=== PATIENT | female | born 1955 | race Caucasian/White ===

== ENCOUNTER → 2016-02-29 | Outpatient (CLI) | payer BC ==
[~2016-02-29] MED LIST: ANTIVERT25 MG PO; APA PO; ASPIR 8181 MG PO; ATARAX25 MG PO; ATIVAN0.5 MG; CRESTOR10 M1 PO; CRESTOR10 MG; DAYPRO600 M1 PO; FLEXERIL5 MG PO; HYDROCODONE PO; HYDROCORTISONE30 G3 PO; LISINOPRIL5 MG PO; LOVENOX30 MG/0.3 SC; MEDROL DOSEPAK4 MG PO; PAXIL20 MG PO; PAXIL40 M1 PO; PRED PAK PO; PREDNICOT20 MG PO; Percocet 325 MG1 TAB PO; VIBRAMYCIN100 MG PO; VICODIN 5/500 505 MG PO; VICODIN 500 MG-1 TAB PO; VICODIN ES 7501 TAB PO; VITAMIN D50000 I2 PO; XANAX0.5 MG; XANAX0.5 MG PO; ZOFRAN4 MG PO
[2016-02-29 07:34] LABS: BASO % 0.3 % (0.0-1.0); EOS # 0.4 10*3/uL (0.0-0.4); HEMATOCRIT 40.4 % (37.0-47.0); HEMOGLOBIN 12.5 g/dl (12.0-16.0); IG # 0.1 10*3/uL (0.0-0.1); LYMPH # 1.4 10*3/uL (1.3-4.4); LYMPH % 24.3 % (27.0-41.0); MEAN CELL VOLUME 93.1 fl (81.0-99.0); MEAN CORPUSCULAR HGB 28.8 pg (27.0-31.0); MEAN CORPUSCULAR HGB CONC 30.9 g/dl (33.0-37.0); MONO # 0.3 10*3/uL (0.1-1.0); MONO % 5.5 % (3.0-9.0); NEUT # 3.6 10*3/uL (2.3-7.9); NEUT % 61.9 % (47.0-73.0); PLATELET COUNT AUTOMATED 223 10*3/uL (130-400); RED BLOOD COUNT 4.34 10*6/uL (4.10-5.10); RED CELL DISTRI WIDTH 12.9 % (0-14.5); WHITE BLOOD COUNT 5.9 10*3/uL (4.8-10.8)
[2016-02-29 08:04] LABS: ALBUMIN 3.7 gm/dl (3.1-4.5); ALKALINE PHOSPHATASE 100 U/L (45-117); BILIRUBIN, TOTAL 0.8 mg/dl (0.2-1.0); BUN 18 mg/dl (7-24); CARBON DIOXIDE 31 mmol/L (21-32); CHLORIDE 108 mmol/L (98-107); CHOLESTEROL 182 mg/dL (<200); EST GLOM FILT AFRICAN AMERICAN > 60 ml/min; GLUCOSE 87 mg/dL (65-99); HDL CHOLESTEROL 75 mg/dl (40-60); LDL CHOLESTEROL 95 mg/dL (9-159); POTASSIUM 4.6 mmol/L (3.5-5.1); SGOT/AST 17 IU/L (3-35); SGPT/ALT 20 U/L (12-78); SODIUM 144 mmol/L (136-145); TOTAL PROTEIN 6.7 gm/dL (6.4-8.2); TRIGLYCERIDES 61 mg/dl (<150); VLDL CHOLESTEROL 12 mg/dL (6-40)
[2016-02-29 08:05] LABS: C-REACTIVE PROTEIN < 0.29 MG/DL (0-0.3)
[2016-02-29 08:32] LABS: VITAMIN D, 25-HYDROXY 32.9 ng/mL (30-100)
== END | disposition home or self-care (01) ==
LOC: LAB 02:09
PROVIDERS: Internal Medicine
DX: I10 Essential (primary) hypertension (principal); M16.10 Unilateral primary osteoarthritis, unspecified hip; L40.9 Psoriasis, unspecified

== ENCOUNTER → 2016-06-11 | Outpatient (CLI) | payer BC | END | disposition home or self-care (01) | LOC: ORTHO 00:36 | DX: M16.11 Unilateral primary osteoarthritis, right hip (principal); Z96.642 Presence of left artificial hip joint ==

== ENCOUNTER → 2016-06-12 | Day surgery (SDC) | payer BC | END | disposition home or self-care (01) | LOC: SDC 02:47 | DX: M25.551 Pain in right hip (principal) ==

== ENCOUNTER → 2016-08-08 | Outpatient (CLI) | payer OTHER | END | disposition home or self-care (01) | LOC: ORTHO 02:01 | DX: M76.891 Other specified enthesopathies of right lower limb, excluding foot (principal); M89.8X9 Other specified disorders of bone, unspecified site; M79.604 Pain in right leg; Z96.642 Presence of left artificial hip joint ==

== ENCOUNTER → 2016-10-21 | Outpatient (CLI) | payer OTHER ==
[~2016-10-21] MED LIST changes: +MELOXICAM15 MG PO; +TRAMADOL HCL50 MG PO
[2016-10-21 09:07] LABS: BASO % 0.3 % (0.0-1.0); EOS # 0.5 10*3/uL (0.0-0.4); HEMATOCRIT 41.3 % (37.0-47.0); LYMPH # 2.2 10*3/uL (1.3-4.4); LYMPH % 28.7 % (27.0-41.0); MEAN CELL VOLUME 92.6 fl (81.0-99.0); MEAN CORPUSCULAR HGB 29.1 pg (27.0-31.0); MEAN CORPUSCULAR HGB CONC 31.5 g/dl (33.0-37.0); MEAN PLATELET VOLUME 9.6 fl (9.6-12.3); MONO # 0.4 10*3/uL (0.1-1.0); MONO % 4.9 % (3.0-9.0); NEUT # 4.5 10*3/uL (2.3-7.9); NEUT % 58.5 % (47.0-73.0); PLATELET COUNT AUTOMATED 249 10*3/uL (130-400); RED BLOOD COUNT 4.46 10*6/uL (4.10-5.10); RED CELL DISTRI WIDTH 14.1 % (0-14.5); WHITE BLOOD COUNT 7.7 10*3/uL (4.8-10.8)
[2016-10-21 09:12] LABS: BILIRUBIN NEGATIVE (NEGATIVE); BLOOD NEGATIVE (NEGATIVE); CLARITY CLEAR (CLEAR); COLOR YELLOW (YELLOW); GLUCOSE NEGATIVE (NEGATIVE); KETONE NEGATIVE (NEGATIVE); LEUKO ESTERASE NEGATIVE (NEGATIVE); NITRITE NEGATIVE (NEGATIVE); PH 6.5 (5.0-9.0); UROBILINOGEN 0.2 E.U./dl (0.2-1.0)
[2016-10-21 09:29] LABS: BACTERIA TRACE
[2016-10-21 09:37] LABS: ALBUMIN 3.8 gm/dl (3.1-4.5); ALKALINE PHOSPHATASE 113 U/L (45-117); BUN 13 mg/dl (7-24); CHLORIDE 105 mmol/L (98-107); CREATININE 0.84 mg/dL (0.55-1.02); POTASSIUM 4.3 mmol/L (3.5-5.1); SGOT/AST 19 IU/L (3-35); SGPT/ALT 22 U/L (12-78); SODIUM 141 mmol/L (136-145); TOTAL PROTEIN 7.4 gm/dL (6.4-8.2)
== END | disposition home or self-care (01) ==
LOC: LAB 10-20 13:41
PROVIDERS: Orthopaedic Surgery
DX: Z01.818 Encounter for other preprocedural examination (principal); M16.11 Unilateral primary osteoarthritis, right hip; I10 Essential (primary) hypertension; Z96.641 Presence of right artificial hip joint

== ENCOUNTER 2016-10-28 02:06 | Inpatient (IN) | payer OTHER ==
[~2016-10-28] VITALS: Ht 167.6 cm; Wt 100.7 kg
[2016-10-28] VITALS (11 sets, daily range): BP systolic 79–152; BP diastolic 44–89
--- NOTE | ~2016-10-28 | PR ---
[place], [place] PROGRESS NOTE NAME[id number] UNIT #: [id number] ROOM: 512 DOCTOR: SUSHMA HERNANDEZ MD BIRTHDATE: [birth year] DOS: SUBJECTIVE: The patient states that she has a lot of pain. She does not have any complaints of chest pains or palpitations. The pain is much worse than her previous surgery that she underwent. OBJECTIVE: VITAL SIGNS: Blood pressure is 99/57, pulse of 90, respirations 20, temperature 98.9. LUNGS: Diminished breath sounds, clear. HEART: Regular. ABDOMEN: Soft. EXTREMITIES: Without any edema. Right hip site looks clean. Dressings intact. LABORATORY DATA: White blood cell count is 8.7, hemoglobin 7.1, hematocrit 22.5. BMP: Glucose 137, BUN 21, creatinine 1.09, sodium 136, potassium 4.6, chloride 105, bicarbonate 25. ASSESSMENT AND PLAN: 1. Right hip replacement, postoperative day 2. 2. The patient is stable postoperatively, still slightly hypotensive. 3. Postoperative anemia. Transfusion will be ordered. Continue IV fluids. 4. Acute kidney injury, possibly from blood loss and acute tubular necrosis. Continue IV fluids. 5. Benign hypertension. Pressures are on the low side, so we will continue holding off on the antihypertensive. SUSHMA HERNANDEZ MD CM:PNTRANS [id number] SUSHMA HERNANDEZ MD 10/30/16 2253 interface
--- NOTE | ~2016-10-28 | WRIGHTHP ---
[place], [place] PATIENT HISTORY AND PHYSICAL EXAM [id number] UNIT #: [id number] ROOM: 512 DOCTOR: SUSHMA HERNANDEZ MD BIRTHDATE: [birth year] DOS: 10/28/2016 HISTORY OF PRESENT ILLNESS: This patient is 61 years old, very well known to us. She is admitted post right hip replacement. The patient does not have any complaints other than pain. She had a very uncomfortable night because of the increased discomfort in her right leg. She denies having any chest pains, palpitations, does not have any fever or chills, does not have any abdominal pain, nausea, any emesis. PAST MEDICAL HISTORY: Significant for: 1. Left hip replacement in 04/2016. 2. Benign hypertension. 3. History of negative cardiac catheterization in 04/2016. 4. Generalized anxiety disorder. MEDICATIONS: She is currently on are Xanax 0.5 mg daily p.r.n., lisinopril 5 mg daily, Meloxicam 15 mg daily, Paxil 40 daily, rosuvastatin 20 mg daily. SOCIAL HISTORY: Nonsmoker, does not use any alcohol. PHYSICAL EXAMINATION: GENERAL: The patient is awake and alert and oriented. VITAL SIGNS: Graphic trend shows the patient's pressures 80/50, pulse of 86, respirations 14, afebrile. NECK: Supple. No lymph nodes. LUNGS: Diminished breath sounds. No wheezes, rales or rhonchi heard. HEART: Regular. ABDOMEN: Obese, soft, nontender. EXTREMITIES: Without any edema. Right hip site looks clean. The right leg does not look swollen, the left without any swelling. MENTAL STATUS: Awake and alert and oriented, answers questions appropriately, sitting up in bed. ASSESSMENT AND PLAN: 1. The patient with history of right hip replacement. Postoperatively, her blood pressure is on the low side. Routine labs have been ordered and pending. The patient is started on vigorous IV hydration and the pressures are maintaining. We will hold off on the lisinopril right now. 2. Postoperative pain, managed with Ultram. 3. Benign hypertension. Again, hold off on antihypertensives right now, with a negative cardiac catheterization early this year. 4. Generalized anxiety disorder, Xanax can be ordered on a p.r.n. basis. [place], [place] PATIENT HISTORY AND PHYSICAL EXAM NAME: SONIA SAMUEL UNIT #: [id number] ROOM: 512 DOCTOR: SUSHMA HERNANDEZ MD BIRTHDATE: [birth year] SUSHMA HERNANDEZ MD CM:HISPHYS:PATIENT HISTORY AND PHYSICAL EXAMINATION 4 SUSHMA HERNANDEZ MD 10/29/16944 interface
--- NOTE | ~2016-10-28 | PR ---
[place], [place] PROGRESS NOTE [id number] UNIT #: [id number] ROOM: 512 DOCTOR: CARYN PRATER MD BIRTHDATE: [birth year] DOS: 10/31/2016 SUBJECTIVE: The patient continues to feel better. She is working with physical therapy after right hip total joint arthroplasty by Dr. Melendez 4 days ago. PHYSICAL EXAMINATION: VITAL SIGNS: Blood pressure 116/78, heart rate of 92 beats per minute, breathing 20 times per minute, temperature of 100.4 degrees Fahrenheit. GENERAL APPEARANCE: The patient is alert and oriented x 3, in no visible distress. HEENT AND NECK: Exam within normal limits. CARDIOVASCULAR SYSTEM: Heart rate is regular in rate and rhythm. S1 and S2 normally audible. LUNGS: Clear to auscultation. ABDOMEN: Soft, nontender. No obvious organomegaly. Bowel sounds are present. EXTREMITIES: Without significant cyanosis or edema. IMPRESSION: 1. Right hip replacement, postoperative day #4, doing well, working with physical therapy. Dr. Melendez is following. 2. Postoperative anemia, hemoglobin now 8.5, to be repeated, was not checked today. 3. Benign essential hypertension with controlled blood pressures, normal today. 4. Acute kidney failure with elevation of BUN and creatinine, resolved with hydration and normal saline. CARYN PRATER MD CM:PNTRANS [phone] CARYN PRATER MD 10/31/16 233 interface
--- NOTE | ~2016-10-28 | O ---
[place], [place] OPERATIVE NOTE NAME: SONIA SAMUEL [facility] #: [id number] UNIT #: [id number] ROOM: [facility] DOCTOR: ALICIA MELENDEZ DO BIRTHDATE: [birth year] DOS: 10/28/2016 PREOPERATIVE DIAGNOSIS: Right hip severe osteoarthritis. POSTOPERATIVE DIAGNOSIS: Right hip severe osteoarthritis. PROCEDURE: Right hip total joint arthroplasty. SURGEON: Alicia Melendez DO. COORDINATOR OF REHABILITATION SERVICES: Lori Watkins Evans. ANESTHESIA: FERNANDO Broderick, general with endotracheal intubation. INDICATIONS: The patient is a 61-year-old female with a history of severe osteoarthritis of the right lower extremity. The risks and benefits of the procedure were explained to the patient preoperatively. Preoperative labs and x-rays were obtained including preoperative medical clearance. DESCRIPTION OF PROCEDURE: The right hip was marked in the holding room. The patient was brought to the operative suite. General anesthetic with endotracheal intubation was performed. The patient was placed side lying on the Pradeep positioning device or peg board vaughan. The patient received Ancef 2 grams IV piggyback. The timeout was performed. The right lower extremity was prepped and draped in usual orthopedic fashion. The posterior southern incision was planned and marked with a marking pen. The incision was injected with Marcaine 0.5% with epinephrine. The incision was made sharply with the scalpel. Subcutaneous tissue was spread down to the level of the gluteus fascia. The gluteus fascia was divided along its fibers and the gluteus muscle was divided bluntly along its fibers. Retractors were utilized including a Charnley self-retaining retractor. The short external rotators were identified and the piriformis was tagged with a suture. These were released at the level of their insertion and retracted posteriorly. The capsule was identified and opened in a T-shaped fashion. The neck was identified and cleared of soft tissue. The guide was put in place and the calcar cut was marked. This was made with an oscillating saw, followed by an osteotome. The femoral head and a portion of the neck were removed and sent to the lab for further study. The acetabulum was initially addressed and labrum was cleared from the edge of the acetabulum. Large osteophytes were removed and there was noted to be loose bodies within the acetabulum, which were also removed. The area was copiously irrigated with normal saline and was reamed beginning with a 35 mm reamer and increasing by 2 mm up to 51. The reaming then progressed by a 1 mm increment to 55 mm. A trial cup was put into place and positioned. X-rays were obtained to evaluate the positioning of the cup. The G7 finned acetabular shell; 4-hole was put into place and in a posterior and superior position. The flexible drill bit was utilized to create 2 holes, followed by the placement of two 20 mm screws. The acetabular cup was noted to fit snugly. The trial liner was put into place and attention was turned to the femoral side of the hip. The box osteotome was used to remove the lateral portion of the medullary canal and this was followed [place], [place] OPERATIVE NOTE NAME: SELENASONIA CHACKO Krystal UNIT #: [id number] ROOM: [facility] DOCTOR: ALICIA MELENDEZ DO BIRTHDATE: [birth year] by straight awl and broaching began with a size 4 and progressed to a size 7 broach. This was noted to have good fit and fill and was snug within the femoral canal. Trials were performed with a 36 mm head and a negative 3 and 6 neck length. The standard neck was noted to provide the best stability in flexion, extension, internal and external rotation as well as shucking. All trials were removed and the area was copiously irrigated with normal saline. There was noted to be continued oozing of blood at the anterior acetabulum and Magdiel was placed within this area to control bleeding as well as electrocautery. The Biomet taper lock primary femoral stem was pressfit into place, followed by cold welding of the 36 mm modular head component with a standard neck. The acetabular liner G7 high wall was put into place and secured with the impactor and mallet. The reduction was again performed and the hip was taken through a range of motion of flexion, extension, internal and external rotation as well as shucking. There was noted to be good stability and motion. The wound was then closed in a layered fashion with 0 Vicryl for the short external rotators as well as the gluteus layer. This was followed by 2-0 Vicryl at the adipose layer and skin edgar. The incision was again injected with Marcaine 0.5 with epinephrine. The dressing was completed with Xeroform, 4 x 4s, ABDs and Tegaderm. The patient was returned to a supine position and the abduction pillow was positioned. The anesthetic was reversed. The patient was extubated and taken to recovery room in satisfactory condition. ESTIMATED BLOOD LOSS: 1500 mL. SPECIMENS: Bone and soft tissue were sent to lab for further study. DRAINS: None. PACKING: None. IMPLANTS: 1. Biomet Taperloc complete primary femoral porous coated stem 7 x 134 mm standard offset. 2. Biomet G7 finned acetabular shell 4-hole cementless, acetabular screws 6.5 mm diameter, 20 mm length x 2. 3. G7 acetabular liner high wall. 4. Biomet modular head component standard neck, 36 mm. [place], [place] OPERATIVE NOTE NAME: GARRETTRADHARICCOSONIA Krystal UNIT #: [id number] ROOM: [facility] DOCTOR: ALICIA MELENDEZ DO BIRTHDATE: [birth year] ALICIA MELENDEZ DO CM:OPRECORD:OPERATIVE NOTE [phone] ALICIA MELENDEZ DO 10/31/16 0719 interface
[2016-10-28 10:11] LABS: HEMATOCRIT 32.4 % (37.0-47.0); HEMOGLOBIN 10.1 g/dl (12.0-16.0)
--- NOTE | 2016-10-28 12:18 | NUR ---
PHYSICAL THERAPY orders received, patient still in post op at this time. Thank you for this referral. Yocasta Hernandez,PT
--- NOTE | 2016-10-28 14:10 | NUR ---
ATTEMPTED EVALUATION AT THIS PM. PT UNABLE TO PARTICIPATE, VERY TIRED AND UNABLE TO MOVE LE ENOUGH TO STAND.
[2016-10-28 14:14] LABS: HEMATOCRIT 29.3 % (37.0-47.0); HEMOGLOBIN 9.3 g/dl (12.0-16.0)
--- NOTE | 2016-10-28 14:18 | NUR ---
Time: 1329 A 61 year old FEMALE admitted to under services of ALICIA LANG DO. Pt. arrived via bed from OP/ADMIT. Chief complaint: RIGHT HIP REPLACEMENT. SUSAN WILL
--- NOTE | 2016-10-28 14:26 | NUR ---
PATIENTS BLOOD PRESSURE WAS 86/[address] COLVIN CALLED AND STAT H/H ORDERED AND TRANSFER OF PRIMARY CARE TO DR. HERNANDEZ. DR. HERNANDEZ WAS MADE AWARE AND NS BOLUS WAS ORDERED STAT. H/H RESULTS RELAYED TO DR. HERNANDEZ. H/H ORDERED FOR 1800 TONIGHT.
--- NOTE | 2016-10-28 14:26 | NUR ---
PHYSICAL THERAPY PAtient in room, (B)LE sensation not 100 % returned at this time, not appropriate to initiate PT at this time. Alos, patient requests attempt PT later. Thank you for this referral. Yocasta Hernandez,PT
--- NOTE | 2016-10-28 15:57 | NUR ---
PHYSICAL THERAPY PAtient now has STAT boluses running due to low blood pressure. Not appopriate for PT at this time. Will initiate tomorrow if appropriate. Encouaged patient to get OOB with nursing later this evening if all medical complications stable. Thank you for this referral. laisha Hernandez,PT
[2016-10-28 17:43] LABS: HEMATOCRIT 29.7 % (37.0-47.0); HEMOGLOBIN 9.1 g/dl (12.0-16.0)
--- NOTE | 2016-10-28 20:35 | NUR ---
MEDICATED WITH DILAUDID FOR C/O RIGHT HIP PAIN.
--- NOTE | 2016-10-28 21:30 | NUR ---
STATES DILAUDID EFFECTIVE FOR RELIEF OF PAIN.
--- NOTE | 2016-10-28 22:54 | NUR ---
MEDICATED WITH DILAUDID FOR C/O RIGHT HIP PAIN.
[2016-10-29] VITALS (7 sets, daily range): BP systolic 79–85; BP diastolic 42–58
--- NOTE | 2016-10-29 01:00 | NUR ---
RESTING IN BED WITH EYES CLOSED. DILAUDID EFFECTIVE FOR PAIN RELIEF.
--- NOTE | 2016-10-29 01:30 | NUR ---
CALLED DR. HERNANEDZ PERTAINING TO PT;S LOW BLOOD PRESSURE. NO NEW ORDERS RECEIVED.
--- NOTE | 2016-10-29 06:00 | NUR ---
PT. DOZING. AROUSES EASILY UPON ENTERING ROOM. REFUSING PAIN MEDICATION AT THIS TIME. IV FLUIDS CONTINUE TO INFUSE WITHOUT DIFFICULTY; SITE ASYMPTOMATIC. CALL LIGHT WITHIN REACH.
[2016-10-29 07:08] LABS: BASO % 0.1 % (0.0-1.0); HEMATOCRIT 27.2 % (37.0-47.0); HEMOGLOBIN 8.3 g/dl (12.0-16.0); LYMPH # 1.7 10*3/uL (1.3-4.4); LYMPH % 19.7 % (27.0-41.0); MEAN CELL VOLUME 92.8 fl (81.0-99.0); MEAN CORPUSCULAR HGB 28.3 pg (27.0-31.0); MEAN CORPUSCULAR HGB CONC 30.5 g/dl (33.0-37.0); MEAN PLATELET VOLUME 9.7 fl (9.6-12.3); MONO # 0.6 10*3/uL (0.1-1.0); MONO % 7.3 % (3.0-9.0); NEUT # 6.3 10*3/uL (2.3-7.9); NEUT % 72.2 % (47.0-73.0); PLATELET COUNT AUTOMATED 165 10*3/uL (130-400); RED BLOOD COUNT 2.93 10*6/uL (4.10-5.10); RED CELL DISTRI WIDTH 16.3 % (0-14.5); WHITE BLOOD COUNT 8.8 10*3/uL (4.8-10.8)
--- NOTE | 2016-10-29 08:30 | NUR ---
Auto Salvage Worker in to talk to patient. Patient states [place] at [place] with HER FIANCE. There are 14 steps in the home. Physician: DR HERNANDEZ Pharmacy: [facility] [place] Home health services: NONE Patient's level of ADLs: INDEPENDENT Patient has working utilities: YES DME: HAS CANE/WALKER/SH CHAIR AND RRAISED TOILET SEAT FROM LEFT HIP REPLACEMENT Follow-up physician's appointment after d/c: WILL MAKE HER OWN FOLLOW UP APPT AFTER DC FROM SNF Does patient want to access PORTAL?: Discharge plan . JOI SOUZA PT REQUESTS SNF STAY AT [facility]. DC GROUND OPERATIONS CREW MEMBER WILL MAKE REFERRAL. PT IS AWARE SHE WILL HAVE COPAY FOR SNF STAY. STATES HER FAMILY WILL TAKE HER INSURANCE DOES NOT PAY FOR AMBULANCE.
--- NOTE | 2016-10-29 09:40 | NUR ---
Patient approached for Occupational Therapy evaluation this am on 5th floor. Patient in bed, with abductor wedge in place and c/o just receiving a shot for pain that has not yet been effective. OTR will recheck at a later time. Patient in agreement. Dr Melendez phoned therapy office to report that she is aware that patient is exhibiting some right foot drop s/p surgery. She would like PT to assess and then discuss tx options after PT evaluation. PT informed that she needs to contact OTR for these details. Emily Sam OTR/L
--- NOTE | 2016-10-29 11:01 | NUR ---
Patient soundly sleeping after pain injection and low BP this am. OT will attempt in pm today for OT evaluation. Thank you for this referral. Emily Sam OTR/L
--- NOTE | 2016-10-29 11:33 | NUR ---
PHYSICAL THERAPY Pnt sleeping soundly on arrival for PT evaluation after receiving injection for severe pain. Will attempt again later this pm. Lizzie Weinberg, PT
--- NOTE | 2016-10-29 13:53 | NUR ---
Occupational Therapy evaluation completed this date on 5 with full eval to follow. Precautions include fall risk, R CLAUDE precautions , villa, O2, abductor wedge, new right foot drop, high complexity level 39761. Recommend OT per POC and SNF upon d/c to enable safe return home to [facility]. Thank you for this referral. Emily Sam OTR/l
--- NOTE | 2016-10-29 14:18 | NUR ---
Patient referred to [facility], waiting on acceptance.
--- NOTE | 2016-10-29 14:27 | NUR ---
PHYSICAL THERAPY Physical Therapy Evaluation completed this date. See eval document for complete details. Will begin PT intervention to address impairments of limited ROM, muscle weakness, decreased functional mobility I, and difficulty ambulating. Recommend SNF on d/c[place] [address] based on chart review and PT eval. Lizzie Weinberg, PT
--- NOTE | 2016-10-29 20:18 | NUR ---
MEDICATED WITH DILAUDID FOR C/O RIGHT HIP PAIN.
--- NOTE | 2016-10-29 23:30 | NUR ---
RESTING IN BED WITH EYES CLOSED; DILAUDID GIVEN EARLIER APPARENTLY EFFECTIVE.
[2016-10-30] VITALS (17 sets, daily range): BP systolic 93–120; BP diastolic 41–69
--- NOTE | 2016-10-30 | NUR ---
MEDICATED WITH ULTRAM PER STRAIGHT ORDER.
--- NOTE | 2016-10-30 02:00 | NUR ---
PT. RESTING IN BED WITH EYES CLOSED; PAIN MEDICATION GIVEN EARLIER APPARENTLY EFFECTIVE.
[2016-10-30 06:40] LABS: BASO % 0.2 % (0.0-1.0); EOS # 0.1 10*3/uL (0.0-0.4); EOS % 0.9 % (1.0-4.0); HEMATOCRIT 22.5 % (37.0-47.0); HEMOGLOBIN 7.1 g/dl (12.0-16.0); LYMPH # 1.7 10*3/uL (1.3-4.4); LYMPH % 19.1 % (27.0-41.0); MEAN CORPUSCULAR HGB 29.3 pg (27.0-31.0); MEAN CORPUSCULAR HGB CONC 31.6 g/dl (33.0-37.0); MEAN PLATELET VOLUME 9.9 fl (9.6-12.3); MONO # 0.6 10*3/uL (0.1-1.0); MONO % 7.1 % (3.0-9.0); NEUT # 6.2 10*3/uL (2.3-7.9); NEUT % 71.9 % (47.0-73.0); PLATELET COUNT AUTOMATED 146 10*3/uL (130-400); RED BLOOD COUNT 2.42 10*6/uL (4.10-5.10); RED CELL DISTRI WIDTH 15.5 % (0-14.5); WHITE BLOOD COUNT 8.7 10*3/uL (4.8-10.8)
--- NOTE | 2016-10-30 06:50 | NUR ---
UPON GOING INTO ROOM TO DISCONTINUE NAVA CATHETER PT. STATES "I HAVEN'T REALLY BEEN UP WALKING AROUND THAT MUCH." PT. WOULD LIKE TO WAIT TO HAVE NAVA CATHETER REMOVED. WILL LET ONCOMING RN KNOW.
[2016-10-30 07:11] LABS: BUN 21 mg/dl (7-24); CHLORIDE 105 mmol/L (98-107); CREATININE 1.09 mg/dL (0.55-1.02); POTASSIUM 4.6 mmol/L (3.5-5.1); SODIUM 136 mmol/L (136-145)
--- NOTE | 2016-10-30 08:52 | NUR ---
PHYSICAL THERAPY Pt having her breakfast at this time, will stop back. MARLEY ESCOBAR KNIFE EDGER.
--- NOTE | 2016-10-30 11:36 | NUR ---
PHYSICAL THERAPY Back to treat Emily this AM 1:1 for her therapy session, Pt getting dilaudid for right hip pain, and slight right drop foot having P/F,D/F with cueing. Transfer supine/sit MAX A X 1, and just very slow, sitting balance once up supervision x 1. Sit/stand and up on wheeled walker standing balance MOD A X 1, weight shift and is WBAT right. Gait with wheeled walker 12' X 2, into Pt's bathroom, verbal cueing for balance safety and needing MOD A X 1. Gait back to bed after the bathroom MOD A X 1 and she said that she needed that help. Pt just wiped out after that and wanting to rest supine in bed. MARLEY ESCOBAR WEB ART DIRECTOR.
--- NOTE | 2016-10-30 12:21 | NUR ---
Informed consent obtained from for Blood transfussion by Dr. HERNANDEZ. Patient identified by arm band. Vital signs recorded. Blood unit number verified by 2 R.N.'s. I.V. site satisfactory. Unit 1 started at a KVO rate with Normal Saline. CYNTHIA HASSAN
--- NOTE | 2016-10-30 12:57 | NUR ---
Completed PASS/RR online in hens system, patient referred to [place]. Waiting on precert.
--- NOTE | 2016-10-30 13:16 | NUR ---
PHYSICAL THERAPY Emily was seen this PM for her therapy sessio. Pt was supine in bed sleeping sound and getting blood at this time. MARLEY ESCOBAR PUBLIC RECORDS RESEARCHER.
--- NOTE | 2016-10-30 16:30 | NUR ---
Informed consent obtained from family for Blood transfussion by Dr. HERNANDEZ. Patient identified by arm band. Vital signs recorded. Blood unit number verified by 2 R.N.'s. I.V. site satisfactory. Unit started at a KVO rate with Normal Saline. CYNTHIA HASSAN
--- NOTE | 2016-10-30 20:30 | NUR ---
BLOOD INFUSION COMPLETED; NO S/S OF A TRANSFUSION REACTION NOTED. PT. RESTING COMFORTABLE WITH HOB ELEVATED & EYES CLOSED. CALL LIGHT WITHIN REACH.
--- NOTE | 2016-10-30 22:11 | NUR ---
MEDICATED WITH DILAUDID FOR C/O RIGHT HIP PAIN.
[2016-10-31] VITALS: BP 103/58
--- NOTE | 2016-10-31 | NUR ---
RESTING IN BED WITH EYES CLOSED; PAIN MEDICATION GIVEN EARLIER APPARENTLY EFFECTIVE.
[2016-10-31 07:08] LABS: BASO % 0.2 % (0.0-1.0); EOS # 0.2 10*3/uL (0.0-0.4); EOS % 2.4 % (1.0-4.0); HEMATOCRIT 27.2 % (37.0-47.0); HEMOGLOBIN 8.5 g/dl (12.0-16.0); LYMPH # 1.4 10*3/uL (1.3-4.4); LYMPH % 16.5 % (27.0-41.0); MEAN CORPUSCULAR HGB 28.4 pg (27.0-31.0); MEAN CORPUSCULAR HGB CONC 31.3 g/dl (33.0-37.0); MONO # 0.5 10*3/uL (0.1-1.0); NEUT % 73.7 % (47.0-73.0); PLATELET COUNT AUTOMATED 137 10*3/uL (130-400); RED BLOOD COUNT 2.99 10*6/uL (4.10-5.10); RED CELL DISTRI WIDTH 14.9 % (0-14.5); WHITE BLOOD COUNT 8.2 10*3/uL (4.8-10.8)
[2016-10-31 07:19] LABS: CHLORIDE 103 mmol/L (98-107); CREATININE 0.51 mg/dL (0.55-1.02); POTASSIUM 4.1 mmol/L (3.5-5.1); SODIUM 138 mmol/L (136-145)
[2016-10-31 07:27] LABS: BUN 7 mg/dl (7-24)
--- NOTE | 2016-10-31 07:58 | NUR ---
PT GIVEN PRN PO PERCOCET FOR COMPLAINTS OF PAIN TO RIGHT LEG R/T SURGERY. WILL MONITOR EFFECTIVENESS.
[2016-10-31 08:00] VITALS: BP 122/68
--- NOTE | 2016-10-31 10:46 | NUR ---
PHYSICAL THERAPY Pt was seen this AM 1:1 for her therapy treatment. Having C/O right leg pain and just did not want to get up at this time due to her pain. Pt said check back after noon. Emily had last night dilaudid, this morning porcocet for right leg pain, will check back later today. MARLEY ESCOBAR RIGHT OF WAY APPRAISER.
[2016-10-31 12:00] VITALS: BP 119/62
--- NOTE | 2016-10-31 12:28 | NUR ---
PHYSICAL THERAPY Back this PM to see Mrs Hill and talked into her treatment. Pt said that she was still having pain in his right hip, LE but would try, present. Transfer supine/sit slow with MOD A X 1, Pt taking her time due to her pain. Sitting balance once up supervision X 1. Followed by sit/stand and up on wheeled walker, working in weight shift. Said that she did not want to try and gait. Gait forward and back followed by one sitting rest Then another gait forward and back with MIN A X 1, cueing for gait, balance safety with no LOB. Another sitting rest, then back supine in bed said that she was really tired now and wanting to sleep, Pt with call light, phone and going to stay. With pt in supine and 3-4" right SLR said it was painfull, treatment time 18 min. MARLEY ESCOBAR LIFTER DRIVER.
--- NOTE | 2016-10-31 13:49 | NUR ---
Received authorization for patient to go to [facility]. She can go today if medically stable for discharge.
--- NOTE | 2016-10-31 14:38 | NUR ---
PHYSICAL THERAPY CO-SIGN I approve of the Phyical Therapy notes written above. KYLE ALLEN PT
[2016-10-31 16:00] VITALS: BP 116/69
[2016-10-31] MEDS ORDERED: DOK COLACE100 MG PO (17:50)
[2016-10-31] MEDS ORDERED: Percocet 325 MG1 TAB PO (17:50)
[2016-10-31] MEDS ORDERED: ASPIR-TRIN325 MG PO (17:50)
[2016-10-31 20:00] VITALS: BP 142/83
--- NOTE | 2016-10-31 20:15 | NUR ---
PATIENT IS SITTING UP IN BED. NO COMPLAINTS AT THIS TIME.STATES SHE IS IN NO PAIN AT THE MOMENT. RESPIRATIONS EASY/REGULAR. FLUIDS MAINTAINED PER ORDERD. CALL LIGHT IS IN REACH.
--- NOTE | 2016-10-31 21:00 | NUR ---
PATIENT DISCHARGED. VERBALIZED UNDERSTANDING OF DISCHARGE INSTRUCTIONS. IV REMOVED AND PRESSURE DRESSING APPLIED.
== END 2016-10-31 21:00 | disposition other institution (70) | DRG 470 ==
LOC: SDC 02:06 → 5E 07:45 → SDC 08:00 → 5E 10-29 08:01
PROVIDERS: Orthopaedic Surgery; ADMIT Internal Medicine
PROC: 0SR90JZ Replacement of Right Hip Joint with Synthetic Substitute, Open Approach (ICD-10-PCS; principal; 2016-10-28)
PROC: 30233N1 Transfusion of Nonautologous Red Blood Cells into Peripheral Vein, Percutaneous Approach (ICD-10-PCS; principal; 2016-10-28)
DX: M16.11 Unilateral primary osteoarthritis, right hip (principal); N17.9 Acute kidney failure, unspecified; M21.371 Foot drop, right foot; D62 Acute posthemorrhagic anemia; Z96.642 Presence of left artificial hip joint; I10 Essential (primary) hypertension; F41.1 Generalized anxiety disorder

== ENCOUNTER 2016-11-04 20:52 | Inpatient (IN) | payer OTHER ==
[~2016-11-04] VITALS: Ht 180.3 cm; Wt 110.3 kg
[2016-11-04] VITALS (10 sets, daily range): BP systolic 130–158; BP diastolic 67–93
--- NOTE | ~2016-11-04 | CON ---
[place], [place] REPORT OF CONSULTATION NAME[id number] UNIT #: [id number] ROOM: 425 DOCTOR: CARYN PRATER MD BIRTHDATE: [birth year] DOS: 11/05/2016 ATTENDING PHYSICIAN: Dr. Clara Melendez HISTORY OF PRESENT ILLNESS: The patient has history of: 1. Recent right hip replacement by Dr. Melendez. 2. Benign essential hypertension. 3. Normal heart cath in April 2016. 4. Generalized anxiety disorder. 5. Mixed hyperlipidemia. The patient was undergoing rehab after right hip replacement at [facility] and while she was trying to get out of bed and turning, she felt a burning pain in her right hip and the pain was severe. The patient was sent to the Emergency Department and was found to have dislocation of her right hip. Dr. Melendez admitted the patient and relocated the hip. The patient was admitted following this and now she is ambulating with Physical Therapy. Pain is better controlled. No chest pains. No GI or urinary symptoms. REVIEW OF SYSTEMS: GASTROINTESTINAL: No nausea, vomiting, diarrhea or constipation. CARDIOVASCULAR: No chest pains or palpitations. LUNGS: No shortness of breath or wheezing. FAMILY HISTORY: Noncontributory. SOCIAL HISTORY: Denies smoking cigarettes, alcohol and drug abuse. MEDICATIONS: Atorvastatin, Paxil, lisinopril, aspirin, Xanax, Percocet, Vicodin. ALLERGIES: Known allergy to LIDODERM PATCH. PHYSICAL EXAMINATION: GENERAL: Alert and oriented x 3. HEENT AND NECK: Extraocular movements are intact. Sclerae are anicteric. Oral mucosa is moist and clean. No obvious facial weakness. Neck is supple without any lymphadenopathy. No thyromegaly. No JVD. No carotid arterial bruits. LUNGS: Clear to auscultation. No wheezing. No rhonchi. CARDIOVASCULAR SYSTEM: Heart rate is regular in rate and rhythm. S1 and S2 normally audible. No significant murmur or any other abnormal cardiac sounds. ABDOMEN: Soft, nontender. No obvious organomegaly. Bowel sounds are present. No obvious herniation. EXTREMITIES: Without significant cyanosis or edema. Warm to touch. CENTRAL NERVOUS SYSTEM: Alert and oriented x 3. Cranial nerves II-XII are intact. Speech is normal. The patient is able to move all extremities. Normal muscle strength. Deep tendon reflexes are equal on both sides. Plantars were downgoing. [place], [place] REPORT OF CONSULTATION NAME: SONIA SAMUEL UNIT #: [id number] ROOM: 425 DOCTOR: CARYN PRATER MD BIRTHDATE: [birth year] IMPRESSION AND PLAN: 1. The patient is status post right hip dislocation on a recently replaced right hip. The right hip has been relocated and the pain is better controlled. The patient's Emmanuel catheter to be removed and Dr. Melendez planning to discharge patient back to [facility] for rehabilitation. 2. Benign essential hypertension with well controlled blood pressures, lisinopril to be continued. 3. Generalized anxiety disorder, treated with paroxetine and p.r.n. Xanax, which has been continued. 4. The patient on aspirin for deep venous thrombosis prophylaxis after surgery, which also has been continued. 5. Mixed hyperlipidemia, treated with atorvastatin, to be continued. CARYN PRATER MD CM:CONSTR:REPORT OF CONSULTATION 1042 11/05/16 194 interface
[~2016-11-04 20:52] MED LIST changes: +ASPIR-TRIN325 MG PO; +DOK COLACE100 MG PO
[2016-11-04 21:43] LABS: BASO % 0.2 % (0.0-1.0); EOS # 0.5 10*3/uL (0.0-0.4); EOS % 5.4 % (1.0-4.0); HEMATOCRIT 30.9 % (37.0-47.0); HEMOGLOBIN 9.8 g/dl (12.0-16.0); LYMPH # 1.7 10*3/uL (1.3-4.4); LYMPH % 16.9 % (27.0-41.0); MEAN CELL VOLUME 90.6 fl (81.0-99.0); MEAN CORPUSCULAR HGB 28.7 pg (27.0-31.0); MEAN CORPUSCULAR HGB CONC 31.7 g/dl (33.0-37.0); MONO # 0.5 10*3/uL (0.1-1.0); MONO % 5.4 % (3.0-9.0); NEUT % 69.2 % (47.0-73.0); PLATELET COUNT AUTOMATED 285 10*3/uL (130-400); RED BLOOD COUNT 3.41 10*6/uL (4.10-5.10); RED CELL DISTRI WIDTH 14.6 % (0-14.5)
[2016-11-04 22:00] LABS: ALBUMIN 2.9 gm/dl (3.1-4.5); BUN 7 mg/dl (7-24); CHLORIDE 101 mmol/L (98-107); CREATININE 0.65 mg/dL (0.55-1.02); POTASSIUM 3.7 mmol/L (3.5-5.1); SGOT/AST 29 IU/L (3-35); SGPT/ALT 26 U/L (12-78); SODIUM 141 mmol/L (136-145)
[2016-11-04 22:01] LABS: ALKALINE PHOSPHATASE 88 U/L (45-117); TOTAL PROTEIN 6.3 gm/dL (6.4-8.2)
--- NOTE | 2016-11-04 22:55 | NUR ---
THIS RN AT BEDSIDE WITH MD GUARDADO AND THEODORA.PT MEDICATED PER MD WITH INITIAL 10MG ETOMIDATE FOLLOWED BY SECOND DOSE OF 10MG ETOMIDATE IVP.PT ON CCM, PT PLACED ON 2L O2 VIA NC.VITALS STABLE.MD YIP AT BEDSIDE TO PERFORM RIGHT HIP REDUCTION.PT TOLERATED WELL.
--- NOTE | 2016-11-04 23:12 | NUR ---
PATIENT AWAKE ALERT STATES SHE FEELS MUCH BETTER AND DOES NOT WANT ANY PAIN MEDS AT THIS TIME, RESP EASY NO SIGNS OF DISTRESS, AWAITING XRAY CONFIRMATION OR LEFT HIP PLACEMENT
--- NOTE | 2016-11-04 23:39 | NUR ---
PATIENT RESING COMFORTABLY A&O X3, NO COMPLAINTS AT PRESENT TIME RESP EASY COLOR PINK SKIN WARM DRY
[2016-11-05] VITALS (9 sets, daily range): BP systolic 105–148; BP diastolic 56–71
--- NOTE | 2016-11-05 00:14 | NUR ---
PATIENT SAT AT 100% ON 2LPN , NASAL CONNULA D/C, WILL MONITOR SATS, PT REQUESTING PAIN MEDS RATES PAIN AT 5/10 FROM RIGHT LEG PAIN WILL NOTIFY
--- NOTE | 2016-11-05 01:14 | NUR ---
PT RESTING IN BED IN LOW FOWLERS POSITION, DENIES ANY PAIN AT PRESENT TIME, NO SIGNS OF DISTRESS
--- NOTE | 2016-11-05 01:18 | NUR ---
PATIENT LUSE OX DOWN TO 90% RA, PT PLACED BACK ON O2 AT 2LPM PULSE OX NOW 95%
--- NOTE | 2016-11-05 02:51 | NUR ---
PATIENT RESTING IN BED NO COMPLAINTS , PILLOW PLACED UNDER RIGHT ANKLE PER PT REQUEST DENIES ANY PAIN AT PRESENT TIME
--- NOTE | 2016-11-05 02:58 | NUR ---
PT RESTING IN BED NO SIGNS OF DISTRESS DENIES PAIN OR DISCOMFORT, BED IN LOWEST POSITION BED RAILS UP X 2 CALL ZAMUDIO IN REACH
--- NOTE | 2016-11-05 03:27 | NUR ---
PT MOVED TO ADMIT BED PT REMAINS IN ROOM 16, PT MOVED WITHOUT DICOMFORT, PULSE OX 94% ROOM AIR, O2 REMOVED , WILL MONITOR SATS, PT DENIES PAIN, BED IN LOWEST POSITION BED RAILS UP X 2 CALL ZAMUDIO IN REACH
--- NOTE | 2016-11-05 04:43 | NUR ---
PATIENT IN BED RESTING DENIES PAIN OR DISCOMFORT, BED IN LOWEST POSITION BED RAILS UP X 2 CALL ZAMUDIO IN REACH
[2016-11-05 04:57] LABS: HEMATOCRIT 28.6 % (37.0-47.0); HEMOGLOBIN 8.9 g/dl (12.0-16.0); MEAN CELL VOLUME 92.6 fl (81.0-99.0); MEAN CORPUSCULAR HGB 28.8 pg (27.0-31.0); MEAN CORPUSCULAR HGB CONC 31.1 g/dl (33.0-37.0); MEAN PLATELET VOLUME 9.2 fl (9.6-12.3); PLATELET COUNT AUTOMATED 270 10*3/uL (130-400); RED BLOOD COUNT 3.09 10*6/uL (4.10-5.10); RED CELL DISTRI WIDTH 14.6 % (0-14.5); WHITE BLOOD COUNT 9.3 10*3/uL (4.8-10.8)
[2016-11-05 05:16] LABS: TOTAL CELLS COUNTED 100 #CELLS
[2016-11-05 05:17] LABS: MICROCYTOSIS SLIGHT; PLATELET SUFFICIENCY NORMAL (NORMAL)
[2016-11-05 05:24] LABS: BUN 7 mg/dl (7-24); CHLORIDE 101 mmol/L (98-107); CREATININE 0.54 mg/dL (0.55-1.02); POTASSIUM 3.6 mmol/L (3.5-5.1); SODIUM 142 mmol/L (136-145)
--- NOTE | 2016-11-05 05:56 | NUR ---
PATIENT SLEEPING IN SUPINE POSITION RESP EASY BED IN LOWEST POSITION BED RAILS UP X 3 CALL ZAMUDIO IN REACH
--- NOTE | 2016-11-05 06:08 | NUR ---
PATIENT AWOKE STATES PAIN IS RETURNING RATES PAIN AT 5/10, REQUESTING PAIN MED
--- NOTE | 2016-11-05 06:41 | NUR ---
SPOKE WITH DR BONE WHO IS COVERING FOR DR HERNANDEZ, , REVIEWED HOME MEDS DR BONE T.O. TO CONTINUE HOME MEDS WITHOUT CHANGE AND HE WILL SEE PATIENT THIS MORNING
--- NOTE | 2016-11-05 07:20 | NUR ---
REPORT FROM UMER PURI AT THIS TIME. PATIENT IS CURRENTLY IN INPATIENT BED AT THIS TIME RESTING PEACEFULLY. APPEARS IN NO DISTRESS. REQUESTED PILLOW TO BE REMOVED FROM HER BL FEET. PLACED THE PILLOW AT END OF THE BED. WILL CONTINUE TO MONITOR. CALL KHURRAM EDWARDS. AWAITING ROOM PLACEMENT.
--- NOTE | 2016-11-05 08:11 | NUR ---
REPORT CALLED TO MICHELE PURI ON 4TH FLOOR. PATIENT TRANSPORTED TO 4TH FLOOR AT THIS TIME.
--- NOTE | 2016-11-05 08:23 | NUR ---
PATIENT TAKEN BY ADMIT BED TO 4TH FLOOR AT THIS TIME.
--- NOTE | 2016-11-05 08:45 | NUR ---
Time: 844 A 61 year old FEMALE admitted to under services of DR. MOI GARCES,CARYN Wagner Pt. arrived via bed from ER. Chief complaint: RIGHT HIP DISLOCATION. FELECIA CHAVEZ
--- NOTE | 2016-11-05 09:22 | NUR ---
search planner in to see patient. Patient stated she would like to return to [facility] upon discharge for more therapy. Contacted Dr. Cummings for OT order that will be needed for precert to return.
--- NOTE | 2016-11-05 09:55 | NUR ---
DR. COLVIN WAS IN TO SEE PATIENT. AWARE THAT SHE IS HERE.
--- NOTE | 2016-11-05 11:51 | NUR ---
PATIENT WAS AMBULATED TO THE BATHROOM AND BACK TO THE BED WITH ASSISTANCE. PATIENT COMPLAINING OF RIGHT LEG AND ANKLE PAIN RATED 7/10. PATIENT WAS GIVEN IV DILAUDID SEE EMAR. SURGICAL INCISION ON RIGHT HIP WOUND DRESSING CHANGED. SCANT YELLOW DRAINAGE WAS FOUND ON REMOVED DRESSING, WOUND IS WELL APPROXIMATED. PATIENT IS LAYING COMFORTABLY ON LEFT SIDE WITH PILLOW UNDER RIGHT HIP. CALL LIGHT WITHIN REACH.
[2016-11-05] MEDS ORDERED: Percocet 325 MG1 TAB PO (13:16)
--- NOTE | 2016-11-05 13:47 | NUR ---
Patient is being discharged back to [facility], transportation scheduled for 3pm with [facility], nursing and family notified.
--- NOTE | 2016-11-05 13:51 | NUR ---
PHYSICAL THERAPY Patient evaluated on 4, full evaluation to follow. continue with PT as per plan of care with fall, CLAUDE right LE with recent acute dislocation and WBAT precautions. will require return to SNF for impaired mobilty. PAtient is moderate complexity via chart review, tests and evaluation: [id number]. Thank you for this referral. Yocasta Hernandez,PT
--- NOTE | 2016-11-05 15:36 | NUR ---
Discharge instructions reviewed with patient/family. Patient receptive and verbalizes understanding. Follow-up care arranged. Written instructions given to patient/family. patient escorted via [facility] to [facility] FELECIA CHAVEZ
--- NOTE | 2016-11-05 15:43 | NUR ---
SPOKE WITH RN AT [facility]. REPORT GIVEN
== END 2016-11-05 15:36 | disposition home or self-care (01) | DRG 538 ==
LOC: ED 20:52 → 4E 23:10 → EDHOLD 23:10 → 4E 11-05 08:01
PROVIDERS: Student in an Organized Health Care Education/Training Program; ADMIT Orthopaedic Surgery
PROC: 0SS9XZZ Reposition Right Hip Joint, External Approach (ICD-10-PCS; principal; 2016-11-04)
DX: S73.004A Unspecified dislocation of right hip, initial encounter (principal); I10 Essential (primary) hypertension; E78.2 Mixed hyperlipidemia; Z96.641 Presence of right artificial hip joint; F41.1 Generalized anxiety disorder; X58.XXXA Exposure to other specified factors, initial encounter; Y93.89 Activity, other specified; Y92.89 Other specified places as the place of occurrence of the external cause; Y99.8 Other external cause status

== ENCOUNTER 2016-11-16 00:25 | Emergency (ER) | payer OTHER ==
[~2016-11-16] VITALS: Ht 172.7 cm; Wt 104.3 kg
== END 2016-11-16 08:06 | disposition short-term general hospital (02) ==
LOC: ED 00:25
DX: S73.004A Unspecified dislocation of right hip, initial encounter (principal); I10 Essential (primary) hypertension; Z79.899 Other long term (current) drug therapy; Z96.641 Presence of right artificial hip joint; X58.XXXA Exposure to other specified factors, initial encounter; Y93.89 Activity, other specified; Y92.129 Unspecified place in nursing home as the place of occurrence of the external cause; Y99.8 Other external cause status

== ENCOUNTER → 2017-04-24 | Outpatient (CLI) | payer OTHER | END | disposition home or self-care (01) | LOC: US 01:39 | DX: R60.9 Edema, unspecified (principal) ==

== ENCOUNTER → 2017-11-03 | Outpatient (CLI) | payer OTHER | END | disposition home or self-care (01) | LOC: US 01:16 | DX: R60.0 Localized edema (principal); Z86.718 Personal history of other venous thrombosis and embolism ==

== ENCOUNTER → 2018-02-19 | Outpatient (CLI) | payer OTHER | END | disposition home or self-care (01) | LOC: RAD 04:35 | DX: Z13.820 Encounter for screening for osteoporosis (principal); M19.90 Unspecified osteoarthritis, unspecified site; E55.9 Vitamin D deficiency, unspecified; Z78.0 Asymptomatic menopausal state; Z96.643 Presence of artificial hip joint, bilateral ==

== ENCOUNTER → 2018-02-24 | Outpatient (CLI) | payer OTHER | END | disposition home or self-care (01) | LOC: US 01:42 | DX: I73.9 Peripheral vascular disease, unspecified (principal) ==

== ENCOUNTER → 2018-03-17 | Outpatient (CLI) | payer OTHER ==
[2018-03-17 07:49] LABS: BASO % 0.3 % (0.0-1.0); EOS # 0.3 10*3/uL (0.0-0.4); HEMATOCRIT 41.3 % (37.0-47.0); HEMOGLOBIN 13.1 g/dl (12.0-16.0); LYMPH # 1.7 10*3/uL (1.3-4.4); LYMPH % 28.6 % (27.0-41.0); MEAN CELL VOLUME 93.4 fl (81.0-99.0); MEAN CORPUSCULAR HGB 29.6 pg (27.0-31.0); MEAN CORPUSCULAR HGB CONC 31.7 g/dl (33.0-37.0); MONO # 0.3 10*3/uL (0.1-1.0); MONO % 5.4 % (3.0-9.0); NEUT # 3.5 10*3/uL (2.3-7.9); NEUT % 60.2 % (47.0-73.0); PLATELET COUNT AUTOMATED 225 10*3/uL (130-400); RED BLOOD COUNT 4.42 10*6/uL (4.10-5.10); RED CELL DISTRI WIDTH 13.1 % (0-14.5); WHITE BLOOD COUNT 5.8 10*3/uL (4.8-10.8)
[2018-03-17 08:03] LABS: ALBUMIN 3.9 gm/dl (3.1-4.5); ALKALINE PHOSPHATASE 108 U/L (45-117); BUN 14 mg/dl (7-24); CHLORIDE 110 mmol/L (98-107); CHOLESTEROL 148 mg/dL (<200); CREATININE 0.72 mg/dL (0.55-1.02); FREE T4 0.88 ng/dl (0.76-1.46); HDL CHOLESTEROL 62 mg/dl (40-60); LDL CHOLESTEROL 69 mg/dL (9-159); POTASSIUM 4.4 mmol/L (3.5-5.1); SGOT/AST 17 IU/L (3-35); SGPT/ALT 22 U/L (12-78); SODIUM 145 mmol/L (136-145); TOTAL PROTEIN 7.1 gm/dL (6.4-8.2); TRIGLYCERIDES 84 mg/dl (<150); VLDL CHOLESTEROL 17 mg/dL (6-40)
[2018-03-17 08:38] LABS: VITAMIN D, 25-HYDROXY 22.5 ng/mL (30-100)
== END | disposition home or self-care (01) ==
LOC: LAB 03-16 16:01
PROVIDERS: Internal Medicine
DX: Z13.21 Encounter for screening for nutritional disorder (principal); E55.9 Vitamin D deficiency, unspecified; D51.0 Vitamin B12 deficiency anemia due to intrinsic factor deficiency; R53.81 Other malaise

== ENCOUNTER → 2018-06-24 | Outpatient (CLI) | payer OTHER | END | disposition home or self-care (01) | LOC: RAD 14:10 | DX: M54.6 Pain in thoracic spine (principal) ==

== ENCOUNTER → 2019-09-14 | Outpatient (CLI) | payer OTHER ==
[2019-09-14 08:53] LABS: ALBUMIN 3.8 gm/dl (3.1-4.5); ALKALINE PHOSPHATASE 112 U/L (45-117); BUN 10 mg/dl (7-24); CHLORIDE 108 mmol/L (98-107); CHOLESTEROL 190 mg/dL (<200); CREATININE 0.77 mg/dL (0.55-1.02); FREE T4 1.02 ng/dl (0.76-1.46); HDL CHOLESTEROL 61 mg/dl (40-60); LDL CHOLESTEROL 107 mg/dL (9-159); POTASSIUM 4.6 mmol/L (3.5-5.1); SGOT/AST 16 IU/L (3-35); SGPT/ALT 26 U/L (12-78); SODIUM 140 mmol/L (136-145); TOTAL PROTEIN 7.4 gm/dL (6.4-8.2); TRIGLYCERIDES 108 mg/dl (<150); VLDL CHOLESTEROL 22 mg/dL (6-40)
[2019-09-14 09:05] LABS: BASO % 0.3 % (0.0-1.0); EOS # 0.3 10*3/uL (0.0-0.4); EOS % 5.2 % (1.0-4.0); HEMATOCRIT 44.2 % (37.0-47.0); LYMPH # 1.9 10*3/uL (1.3-4.4); LYMPH % 31.9 % (27.0-41.0); MEAN CELL VOLUME 93.1 fl (81.0-99.0); MEAN CORPUSCULAR HGB 28.4 pg (27.0-31.0); MEAN CORPUSCULAR HGB CONC 30.5 g/dl (33.0-37.0); MEAN PLATELET VOLUME 10.2 fl (9.6-12.3); MONO # 0.4 10*3/uL (0.1-1.0); MONO % 6.7 % (3.0-9.0); NEUT # 3.3 10*3/uL (2.3-7.9); NEUT % 55.4 % (47.0-73.0); PLATELET COUNT AUTOMATED 260 10*3/uL (130-400); RED BLOOD COUNT 4.75 10*6/uL (4.10-5.10); RED CELL DISTRI WIDTH 13.3 % (0-14.5)
[2019-09-14 09:08] LABS: VITAMIN D, 25-HYDROXY 34.6 ng/mL (30-100)
== END | disposition home or self-care (01) ==
LOC: LAB 00:51
PROVIDERS: Internal Medicine
DX: M19.031 Primary osteoarthritis, right wrist (principal); E78.2 Mixed hyperlipidemia; I10 Essential (primary) hypertension; E55.9 Vitamin D deficiency, unspecified; Z00.00 Encounter for general adult medical examination without abnormal findings

== ENCOUNTER → 2020-03-15 | Outpatient (CLI) | payer OTHER ==
[~2020-03-15] MED LIST changes: +ASPIRIN81 M1 PO; +CELEBREX50 MG PO
== END | disposition home or self-care (01) ==
LOC: RAD 01:21
PROVIDERS: ATTEND Internal Medicine
DX: Z78.0 Asymptomatic menopausal state (principal)

== ENCOUNTER → 2020-03-20 | Outpatient (CLI) | payer OTHER | END | disposition home or self-care (01) | LOC: RAD 03-14 13:30 | PROVIDERS: ATTEND Internal Medicine | DX: Z12.31 Encounter for screening mammogram for malignant neoplasm of breast (principal) ==

== ENCOUNTER → 2020-03-29 | Outpatient (CLI) | payer OTHER | END | disposition home or self-care (01) | LOC: MAMMO 00:19 | PROVIDERS: ATTEND Internal Medicine | DX: R92.8 Other abnormal and inconclusive findings on diagnostic imaging of breast (principal) ==

== ENCOUNTER → 2020-04-06 | Outpatient (CLI) | payer OTHER | END | disposition home or self-care (01) | LOC: COVID19 14:40 | PROVIDERS: ATTEND Ophthalmology | DX: Z01.812 Encounter for preprocedural laboratory examination (principal); Z20.822 Contact with and (suspected) exposure to COVID-19 ==

== ENCOUNTER → 2020-04-11 | Day surgery (SDC) | payer OTHER ==
[~2020-04-11] VITALS: Ht 170.1 cm; Wt 108.9 kg
[2020-04-11 11:40] VITALS: BP 138/74
[2020-04-11 12:59] VITALS: BP 137/74
[2020-04-11 13:14] VITALS: BP 136/76
[2020-04-11 13:26] VITALS: BP 142/74
== END ==
LOC: SDC 01-13 12:30
PROVIDERS: ATTEND Ophthalmology
DX: H25.811 Combined forms of age-related cataract, right eye (principal); I10 Essential (primary) hypertension; F41.9 Anxiety disorder, unspecified; F32.9 Major depressive disorder, single episode, unspecified; J45.909 Unspecified asthma, uncomplicated; E78.00 Pure hypercholesterolemia, unspecified; Z96.643 Presence of artificial hip joint, bilateral; Z79.82 Long term (current) use of aspirin; Z79.899 Other long term (current) drug therapy; Z98.890 Other specified postprocedural states

== ENCOUNTER → 2020-05-11 | Outpatient (CLI) | payer OTHER | END | disposition home or self-care (01) | LOC: COVID19 15:47 | PROVIDERS: ATTEND Ophthalmology | DX: Z01.812 Encounter for preprocedural laboratory examination (principal); Z20.822 Contact with and (suspected) exposure to COVID-19 ==

== ENCOUNTER → 2020-05-16 | Day surgery (SDC) | payer OTHER ==
[~2020-05-16] VITALS: Ht 170.1 cm; Wt 108.9 kg
[2020-05-16 10:37] VITALS: BP 116/72
[2020-05-16 11:27] VITALS: BP 145/79
[2020-05-16 11:42] VITALS: BP 145/80
[2020-05-16 11:56] VITALS: BP 133/75
== END ==
LOC: SDC 05-11 11:45
PROVIDERS: ATTEND Ophthalmology
DX: H25.812 Combined forms of age-related cataract, left eye (principal); I10 Essential (primary) hypertension; J45.909 Unspecified asthma, uncomplicated; F32.9 Major depressive disorder, single episode, unspecified; F41.9 Anxiety disorder, unspecified; E78.00 Pure hypercholesterolemia, unspecified; Z88.5 Allergy status to narcotic agent; Z79.82 Long term (current) use of aspirin; Z79.899 Other long term (current) drug therapy; Z98.890 Other specified postprocedural states

== ENCOUNTER → 2020-09-11 | Outpatient (CLI) | payer OTHER ==
[2020-09-11 10:55] LABS: BASO % 0.4 % (0.0-1.0); EOS # 0.4 10*3/uL (0.0-0.4); EOS % 5.3 % (1.0-4.0); HEMATOCRIT 42.2 % (37.0-47.0); LYMPH # 2.2 10*3/uL (1.3-4.4); LYMPH % 31.5 % (27.0-41.0); MEAN CELL VOLUME 93.6 fl (81.0-99.0); MEAN CORPUSCULAR HGB 28.8 pg (27.0-31.0); MEAN CORPUSCULAR HGB CONC 30.8 g/dl (33.0-37.0); MEAN PLATELET VOLUME 9.7 fl (9.6-12.3); MONO # 0.5 10*3/uL (0.1-1.0); NEUT # 3.8 10*3/uL (2.3-7.9); NEUT % 55.1 % (47.0-73.0); PLATELET COUNT AUTOMATED 233 10*3/uL (130-400); RED BLOOD COUNT 4.51 10*6/uL (4.10-5.10); RED CELL DISTRI WIDTH 13.2 % (0-14.5); WHITE BLOOD COUNT 6.8 10*3/uL (4.8-10.8)
== END | disposition home or self-care (01) ==
LOC: LAB 10:30
PROVIDERS: ATTEND Internal Medicine
DX: R05 Cough (principal)

== ENCOUNTER → 2020-09-19 | Outpatient (CLI) | payer OTHER | END | disposition home or self-care (01) | LOC: LAB 15:50 | PROVIDERS: ATTEND Internal Medicine | DX: R05 Cough (principal); Z20.822 Contact with and (suspected) exposure to COVID-19 ==

== ENCOUNTER → 2020-12-24 | Outpatient (CLI) | payer OTHER | END | disposition home or self-care (01) | LOC: RAD 13:40 | PROVIDERS: ATTEND Internal Medicine | DX: M43.26 Fusion of spine, lumbar region (principal); M54.59 Other low back pain ==

== ENCOUNTER → 2021-07-02 | Outpatient (CLI) | payer OTHER ==
[2021-07-02 07:39] LABS: BASO % 0.5 % (0.0-1.0); EOS # 0.4 10*3/uL (0.0-0.4); EOS % 5.9 % (1.0-4.0); LYMPH % 32.7 % (27.0-41.0); MEAN CELL VOLUME 92.9 fl (81.0-99.0); MEAN CORPUSCULAR HGB CONC 31.2 g/dl (33.0-37.0); MEAN PLATELET VOLUME 9.9 fl (9.6-12.3); MONO # 0.4 10*3/uL (0.1-1.0); MONO % 6.5 % (3.0-9.0); NEUT # 3.3 10*3/uL (2.3-7.9); NEUT % 53.7 % (47.0-73.0); PLATELET COUNT AUTOMATED 211 10*3/uL (130-400); RED BLOOD COUNT 4.52 10*6/uL (4.10-5.10); RED CELL DISTRI WIDTH 13.1 % (0-14.5); WHITE BLOOD COUNT 6.2 10*3/uL (4.8-10.8)
[2021-07-02 07:46] LABS: ALKALINE PHOSPHATASE 91 U/L (45-117); BUN 11 mg/dl (7-24); CHLORIDE 109 mmol/L (98-107); CHOLESTEROL 160 mg/dL (<200); CREATININE 0.66 mg/dL (0.55-1.02); FREE T4 0.83 ng/dl (0.76-1.46); LDL CHOLESTEROL 75 mg/dL (9-159); POTASSIUM 4.3 mmol/L (3.5-5.1); SGOT/AST 21 IU/L (3-35); SGPT/ALT 29 U/L (12-78); SODIUM 142 mmol/L (136-145); TOTAL PROTEIN 6.7 gm/dL (6.4-8.2); TRIGLYCERIDES 98 mg/dl (<150)
== END ==
LOC: LAB 01:14 → EDSTATUS 15:58 → LAB 15:59
PROVIDERS: ATTEND Internal Medicine
DX: Z00.00 Encounter for general adult medical examination without abnormal findings (principal); I10 Essential (primary) hypertension; E78.2 Mixed hyperlipidemia; E55.9 Vitamin D deficiency, unspecified

== ENCOUNTER → 2021-07-10 | Outpatient (CLI) | payer OTHER | END | disposition home or self-care (01) | LOC: MAMMO 00:09 | PROVIDERS: ATTEND Internal Medicine | DX: Z12.31 Encounter for screening mammogram for malignant neoplasm of breast (principal); Z80.3 Family history of malignant neoplasm of breast ==

== ENCOUNTER → 2021-09-16 | Outpatient (CLI) | payer OTHER | END | disposition home or self-care (01) | LOC: CARD 00:07 | PROVIDERS: ATTEND Internal Medicine | DX: I51.7 Cardiomegaly (principal); R42 Dizziness and giddiness; R06.02 Shortness of breath ==

== ENCOUNTER → 2022-08-22 | Outpatient (CLI) | payer OTHER ==
[2022-08-22 07:39] LABS: BASO % 0.5 % (0.0-1.0); EOS # 0.2 10*3/uL (0.0-0.4); HEMATOCRIT 42.2 % (37.0-47.0); LYMPH # 1.9 10*3/uL (1.3-4.4); LYMPH % 28.4 % (27.0-41.0); MEAN CELL VOLUME 93.4 fl (81.0-99.0); MEAN CORPUSCULAR HGB 29.4 pg (27.0-31.0); MEAN CORPUSCULAR HGB CONC 31.5 g/dl (33.0-37.0); MEAN PLATELET VOLUME 10.1 fl (9.6-12.3); MONO # 0.4 10*3/uL (0.1-1.0); MONO % 5.3 % (3.0-9.0); NEUT # 4.1 10*3/uL (2.3-7.9); NEUT % 62.2 % (47.0-73.0); PLATELET COUNT AUTOMATED 218 10*3/uL (130-400); RED BLOOD COUNT 4.52 10*6/uL (4.10-5.10); RED CELL DISTRI WIDTH 12.9 % (0-14.5); WHITE BLOOD COUNT 6.6 10*3/uL (4.8-10.8)
[2022-08-22 08:05] LABS: ALKALINE PHOSPHATASE 92 U/L (46-116); BUN 11 mg/dl (9-23); CHLORIDE 107 mmol/L (98-107); CHOLESTEROL 143 mg/dL (<200); FREE T4 0.87 ng/dl (0.89-1.76); LDL CHOLESTEROL 62 mg/dL (9-159); POTASSIUM 4.5 mmol/L (3.4-5.1); SGPT/ALT 15 U/L (10-49); TOTAL PROTEIN 6.6 gm/dL (6.0-8.0); TRIGLYCERIDES 101 mg/dl (<150)
[2022-08-22 08:22] LABS: VITAMIN D, 25-HYDROXY 36.3 ng/mL (30-100)
== END | disposition home or self-care (01) ==
LOC: LAB 01:06
PROVIDERS: ATTEND Internal Medicine
DX: E11.9 Type 2 diabetes mellitus without complications (principal); I10 Essential (primary) hypertension; E78.2 Mixed hyperlipidemia; E55.9 Vitamin D deficiency, unspecified; E03.9 Hypothyroidism, unspecified

== ENCOUNTER → 2022-11-26 | Outpatient (CLI) | payer OTHER | END | disposition home or self-care (01) | LOC: LAB 00:45 → MAMMO 10:00 | PROVIDERS: ATTEND Internal Medicine | DX: Z12.31 Encounter for screening mammogram for malignant neoplasm of breast (principal); Z13.0 Encounter for screening for diseases of the blood and blood-forming organs and certain disorders involving the immune mechanism; Z13.1 Encounter for screening for diabetes mellitus; Z13.21 Encounter for screening for nutritional disorder; Z13.220 Encounter for screening for lipoid disorders; Z13.228 Encounter for screening for other metabolic disorders; Z13.29 Encounter for screening for other suspected endocrine disorder; Z13.6 Encounter for screening for cardiovascular disorders; Z13.9 Encounter for screening, unspecified; E04.2 Nontoxic multinodular goiter; E78.2 Mixed hyperlipidemia; F33.0 Major depressive disorder, recurrent, mild; I10 Essential (primary) hypertension; R22.1 Localized swelling, mass and lump, neck ==

== ENCOUNTER 2022-12-03 15:15 | Emergency (ER) | payer OTHER ==
[~2022-12-03] VITALS: Ht 170.1 cm; Wt 110.7 kg
[2022-12-03 16:01] LABS: BASO % 0.4 % (0.0-1.0); EOS # 0.2 10*3/uL (0.0-0.4); EOS % 2.6 % (1.0-4.0); HEMATOCRIT 42.4 % (37.0-47.0); LYMPH % 28.7 % (27.0-41.0); MEAN CELL VOLUME 92.8 fl (81.0-99.0); MEAN CORPUSCULAR HGB CONC 32.3 g/dl (33.0-37.0); MEAN PLATELET VOLUME 10.8 fl (9.6-12.3); MONO # 0.4 10*3/uL (0.1-1.0); MONO % 5.5 % (3.0-9.0); NEUT # 4.3 10*3/uL (2.3-7.9); NEUT % 61.9 % (47.0-73.0); PLATELET COUNT AUTOMATED 204 10*3/uL (130-400); RED BLOOD COUNT 4.57 10*6/uL (4.10-5.10); RED CELL DISTRI WIDTH 12.9 % (0-14.5)
[2022-12-03 16:49] LABS: ACT PARTIAL THROMBO TIME 24.9 SECONDS (20.0-32.1)
[2022-12-03 16:55] LABS: LIPASE 32 U/L (12-53)
[2022-12-03 16:58] LABS: ALKALINE PHOSPHATASE 99 U/L (46-116); BUN 13 mg/dl (9-23); CHLORIDE 105 mmol/L (98-107); SGPT/ALT 15 U/L (5-49); TOTAL PROTEIN 6.5 gm/dL (6.0-8.0)
== END 2022-12-03 20:13 | disposition home or self-care (01) ==
LOC: ED 15:15
PROVIDERS: Emergency Medicine
DX: R07.89 Other chest pain (principal); R10.12 Left upper quadrant pain; I10 Essential (primary) hypertension; F41.9 Anxiety disorder, unspecified; F32.A Depression, unspecified; E78.00 Pure hypercholesterolemia, unspecified; Z88.8 Allergy status to other drugs, medicaments and biological substances; Z98.890 Other specified postprocedural states

== ENCOUNTER → 2022-12-04 | Outpatient (CLI) | payer OTHER ==
[~2022-12-04] MED LIST changes: +HYDROCODONE-AC1 EAC1 PO
== END | disposition home or self-care (01) ==
LOC: US 16:00
PROVIDERS: ATTEND Emergency Medicine
DX: N28.1 Cyst of kidney, acquired (principal); D25.9 Leiomyoma of uterus, unspecified; E27.8 Other specified disorders of adrenal gland; N28.89 Other specified disorders of kidney and ureter; K86.2 Cyst of pancreas

== ENCOUNTER 2022-12-05 14:42 | Emergency (ER) | payer OTHER ==
[~2022-12-05] VITALS: Ht 170.1 cm; Wt 110.7 kg
[~2022-12-05 14:42] MED LIST changes: -HYDROCODONE-AC1 EAC1 PO
[2022-12-05 15:08] LABS: BASO % 0.3 % (0.0-1.0); EOS # 0.3 10*3/uL (0.0-0.4); EOS % 2.8 % (1.0-4.0); HEMATOCRIT 41.7 % (37.0-47.0); LYMPH # 2.9 10*3/uL (1.3-4.4); LYMPH % 32.8 % (27.0-41.0); MEAN CELL VOLUME 91.6 fl (81.0-99.0); MEAN CORPUSCULAR HGB 29.2 pg (27.0-31.0); MEAN CORPUSCULAR HGB CONC 31.9 g/dl (33.0-37.0); MEAN PLATELET VOLUME 9.9 fl (9.6-12.3); MONO # 0.5 10*3/uL (0.1-1.0); MONO % 6.1 % (3.0-9.0); NEUT % 57.3 % (47.0-73.0); PLATELET COUNT AUTOMATED 217 10*3/uL (130-400); RED BLOOD COUNT 4.55 10*6/uL (4.10-5.10); WHITE BLOOD COUNT 8.8 10*3/uL (4.8-10.8)
[2022-12-05 15:20] LABS: ACT PARTIAL THROMBO TIME 24.5 SECONDS (20.0-32.1); INTERNATIONAL NORM RATIO 0.9 (2.0-3.5)
[2022-12-05 15:32] LABS: ALKALINE PHOSPHATASE 99 U/L (46-116); BUN 15 mg/dl (9-23); CHLORIDE 107 mmol/L (98-107); LIPASE 38 U/L (12-53); POTASSIUM 3.9 mmol/L (3.4-5.1); SGPT/ALT 20 U/L (5-49); TOTAL PROTEIN 6.7 gm/dL (6.0-8.0)
[2022-12-05 17:13] LABS: BILIRUBIN Negative (Negative); BLOOD Negative (Negative); CLARITY Clear (Clear); COLOR Yellow (Yellow); GLUCOSE Negative (Negative); KETONE Negative (Negative); LEUKO ESTERASE Negative (Negative); NITRITE Negative (Negative); SPECIFIC GRAVITY 1.025 (1.001-1.030); UROBILINOGEN 0.2 E.U./dl (0.0-1.0)
[2022-12-05] MEDS ORDERED: HYDROCODONE-AC1 EAC1 PO (17:45)
== END 2022-12-05 18:30 | disposition home or self-care (01) ==
LOC: ED 14:42
PROVIDERS: Emergency Medicine
DX: R10.13 Epigastric pain (principal); R11.0 Nausea; F41.9 Anxiety disorder, unspecified; I10 Essential (primary) hypertension; F32.A Depression, unspecified; E78.00 Pure hypercholesterolemia, unspecified; Z88.8 Allergy status to other drugs, medicaments and biological substances; Z98.890 Other specified postprocedural states

== ENCOUNTER → 2022-12-09 | Outpatient (CLI) | payer OTHER ==
[~2022-12-09] MED LIST changes: +HYDROCODONE-AC1 EAC1 PO
== END | disposition home or self-care (01) ==
LOC: SDC 04:00 → EDSTATUS 10:00 → SDC 10:00
PROVIDERS: ATTEND Internal Medicine
DX: E04.1 Nontoxic single thyroid nodule (principal)

== ENCOUNTER → 2023-10-28 | Outpatient (CLI) | payer OTHER ==
[2023-10-28 07:36] LABS: BASO % 0.5 % (0.0-1.0); EOS # 0.3 10*3/uL (0.0-0.4); EOS % 4.4 % (1.0-4.0); HEMATOCRIT 41.9 % (37.0-47.0); LYMPH # 1.7 10*3/uL (1.3-4.4); LYMPH % 29.6 % (27.0-41.0); MEAN CELL VOLUME 93.9 fl (81.0-99.0); MEAN CORPUSCULAR HGB 28.7 pg (27.0-31.0); MEAN CORPUSCULAR HGB CONC 30.5 g/dl (33.0-37.0); MEAN PLATELET VOLUME 9.8 fl (9.6-12.3); MONO # 0.3 10*3/uL (0.1-1.0); MONO % 5.3 % (3.0-9.0); NEUT # 3.5 10*3/uL (2.3-7.9); NEUT % 59.7 % (47.0-73.0); PLATELET COUNT AUTOMATED 211 10*3/uL (130-400); RED BLOOD COUNT 4.46 10*6/uL (4.10-5.10); RED CELL DISTRI WIDTH 13.3 % (0-14.5); WHITE BLOOD COUNT 5.9 10*3/uL (4.8-10.8)
[2023-10-28 08:14] LABS: ALKALINE PHOSPHATASE 95 U/L (46-116); BUN 12 mg/dl (9-23); CHLORIDE 107 mmol/L (98-107); CHOLESTEROL 176 mg/dL (<200); FREE T4 0.91 ng/dl (0.89-1.76); LDL CHOLESTEROL 91 mg/dL (9-159); POTASSIUM 4.6 mmol/L (3.4-5.1); SGPT/ALT 16 U/L (5-49); TOTAL PROTEIN 6.6 gm/dL (6.0-8.0); TRIGLYCERIDES 108 mg/dl (<150)
[2023-10-28 09:34] LABS: VITAMIN D, 25-HYDROXY 51.3 ng/mL (30-100)
== END | disposition home or self-care (01) ==
LOC: LAB 00:39
PROVIDERS: ATTEND Internal Medicine
DX: I10 Essential (primary) hypertension (principal); G47.62 Sleep related leg cramps; F33.0 Major depressive disorder, recurrent, mild

== ENCOUNTER 2024-06-30 15:37 | Emergency (ER) | payer OTHER ==
[~2024-06-30] VITALS: Wt 60.8 kg
[2024-06-30] MEDS ORDERED: PREDNISONE20 M1 PO ×2 (17:14→17:28)
[2024-06-30] MEDS ORDERED: methylPREDNISolone sod succ 125 MG VIAL IM ONE (17:15)
== END 2024-06-30 17:23 | disposition home or self-care (01) ==
LOC: ED 15:37
DX: L23.7 Allergic contact dermatitis due to plants, except food (principal); F32.A Depression, unspecified; F41.9 Anxiety disorder, unspecified; Z88.4 Allergy status to anesthetic agent; Z79.899 Other long term (current) drug therapy; Z79.82 Long term (current) use of aspirin; Z96.642 Presence of left artificial hip joint

== ENCOUNTER 2024-09-27 15:35 | Emergency (ER) | payer OTHER ==
[~2024-09-27] VITALS: Ht 170.1 cm; Wt 110.2 kg
[~2024-09-27 15:35] MED LIST changes: +PREDNISONE20 M1 PO
[2024-09-27] MEDS ORDERED: VIBRAMYCIN100 MG PO (16:19)
[2024-09-27] MEDS ORDERED: PREDNISONE50 MG PO (16:19)
[2024-09-27] MEDS ORDERED: diphenhydrAMINE hydrochloride 50 MG/ML VIAL IM ONE (16:20)
== END 2024-09-27 16:32 | disposition home or self-care (01) ==
LOC: ED 15:35
DX: T78.49XA Other allergy, initial encounter (principal); Z88.4 Allergy status to anesthetic agent; Z79.899 Other long term (current) drug therapy; Z79.82 Long term (current) use of aspirin; Z96.642 Presence of left artificial hip joint; X58.XXXA Exposure to other specified factors, initial encounter

== ENCOUNTER 2024-10-04 15:34 | Emergency (ER) | payer OTHER ==
[~2024-10-04] VITALS: Wt 76.2 kg
[~2024-10-04 15:34] MED LIST changes: +PREDNISONE50 MG PO
[2024-10-04] MEDS ORDERED: diphenhydrAMINE hydrochloride 50 MG/ML VIAL IV ONE (15:50)
[2024-10-04] MEDS ORDERED: SODIUM CHLORIDE 0.9% 1,000 ML IV ONE (15:55)
[2024-10-04] MEDS ORDERED: PREDNISONE10 M1 PO (16:12)
== END 2024-10-04 16:34 | disposition home or self-care (01) ==
LOC: ED 15:34
DX: L25.9 Unspecified contact dermatitis, unspecified cause (principal); I10 Essential (primary) hypertension; F41.9 Anxiety disorder, unspecified; F32.A Depression, unspecified; E78.00 Pure hypercholesterolemia, unspecified; Z88.8 Allergy status to other drugs, medicaments and biological substances; Z96.642 Presence of left artificial hip joint

== ENCOUNTER → 2024-12-29 | Outpatient (CLI) | payer OTHER ==
[~2024-12-29] MED LIST changes: +PREDNISONE10 M1 PO
[2024-12-29 07:11] LABS: BASO # 0.0 10*3/uL (0.0-0.1); BASO % 0.5 % (0.0-1.0); EOS # 0.2 10*3/uL (0.0-0.4); EOS % 2.7 % (1.0-4.0); MEAN CELL VOLUME 92.6 fl (81.0-99.0); MEAN CORPUSCULAR HGB 29.4 pg (27.0-31.0); MEAN PLATELET VOLUME 9.7 fl (9.6-12.3); MONO # 0.4 10*3/uL (0.1-1.0); MONO % 5.8 % (3.0-9.0); NEUT # 3.9 10*3/uL (2.3-7.9); NEUT % 63.1 % (47.0-73.0); NUCLEATED RED BLOOD CELL 0.0 % (0.0-0.0); NUCLEATED RED BLOOD CELL 0.0 10*3/uL (0.0-0.0); PLATELET COUNT AUTOMATED 212 10*3/uL (130-400); RED CELL DISTRI WIDTH 12.7 % (0-14.5)
[2024-12-29 08:29] LABS: BUN 17 mg/dl (9-23); FREE T4 0.91 ng/dl (0.89-1.76); LDL CHOLESTEROL 85 mg/dL (9-159); SGPT/ALT 15 U/L (5-49); VITAMIN D, 25-HYDROXY 42.2 ng/mL (30-100)
== END | disposition home or self-care (01) ==
LOC: LAB 12-28 15:45
PROVIDERS: ATTEND Internal Medicine
DX: I10 Essential (primary) hypertension (principal); E78.2 Mixed hyperlipidemia; E55.9 Vitamin D deficiency, unspecified; R73.9 Hyperglycemia, unspecified; F17.210 Nicotine dependence, cigarettes, uncomplicated; R53.83 Other fatigue; E53.9 Vitamin B deficiency, unspecified; Z13.0 Encounter for screening for diseases of the blood and blood-forming organs and certain disorders involving the immune mechanism; Z13.1 Encounter for screening for diabetes mellitus; Z13.21 Encounter for screening for nutritional disorder; Z13.220 Encounter for screening for lipoid disorders; Z13.228 Encounter for screening for other metabolic disorders; Z13.29 Encounter for screening for other suspected endocrine disorder; Z13.6 Encounter for screening for cardiovascular disorders; Z13.89 Encounter for screening for other disorder; Z13.9 Encounter for screening, unspecified

== ENCOUNTER 2025-02-06 15:42 | Emergency (ER) | payer OTHER ==
[~2025-02-06] VITALS: Ht 170.1 cm; Wt 113.4 kg
== END 2025-02-06 18:19 | disposition home or self-care (01) ==
LOC: ED 15:42
DX: U07.1 COVID-19 (principal); I10 Essential (primary) hypertension; F41.9 Anxiety disorder, unspecified; F32.A Depression, unspecified; E78.00 Pure hypercholesterolemia, unspecified; Z88.8 Allergy status to other drugs, medicaments and biological substances